=== PATIENT | male | born 1990 | race Caucasian/White ===

== ENCOUNTER 2017-03-02 04:11 | Emergency (ER) | payer MEDICAID ==
[~2017-03-02] VITALS: Ht 162.6 cm; Wt 59.2 kg
[2017-03-02 04:11] VITALS: TEMP 98.3; Ht 162.6 cm; Wt 59.2 kg
[~2017-03-02 04:11] MED LIST: CETI-115 PO; FAMO-137 PO; LORA-204 PO; MIRT15TA6 PO; ZOLP5TAB2 PO
--- OUTSIDE RECORDS SUMMARY | 2017-03-02 04:15 | XMS REPORT ---
Author Author Shalonda Dwyer [facility] [place] eClinicalWorks Address Unknown Phone Unavailable Care Team Providers Care Camera Prototyping Engineer Name Role Phone Shalonda Dwyer CP Unavailable Allergies No Known Allergies Problems Problem Type Condition Code Onset Dates Condition Status Problem Social phobia, unspecified F40.10 Active Problem Major depressive disorder, recurrent, moderate F33.1 Active Medications Medication Code System Code Instructions Start Date End Date Status Dosage Loxapine Succinate [facility] [address]-90 10 MG Orally at bedtime 1 capsule Results No Known Results Summary Purpose eClinicalWorks Submission
--- OUTSIDE RECORDS SUMMARY | 2017-03-02 04:15 | XMS REPORT ---
Author Author Shalonda Dwyer [facility] eClinicalWorks Address Unknown Phone Unavailable Care Team Providers Care Strong Nitric Operator Name Role Phone Shalonda Dwyer CP Unavailable Allergies No Known Allergies Problems Problem Type Condition Code Onset Dates Condition Status Problem Social phobia, unspecified F40.10 Active Problem Major depressive disorder, recurrent, moderate F33.1 Active Medications Medication Code System Code Instructions Start Date End Date Status Dosage Abilicarinay [facility] [address]-33 2 MG Orally Once a day April 26, 2016 1 tablet Results No Known Results Summary Purpose eClinicalWorks Submission
--- OUTSIDE RECORDS SUMMARY | 2017-03-02 04:15 | XMS REPORT | Continuity of Care Document ---
Author Author [facility] Organization [facility] Address Unknown Phone Unavailable Care Team Providers Care Summer Analyst Name Role Phone CHLOE HANDLEY MD Primary Care Physician [phone] Insurance Providers Guarantor Ralph Ying Address [address] [facility] [address] [place] [address] Email DENIED/NO PORTAL Payer [facility] Community Plan Policy Number [id number] Subscriber's Name Ralph Ying Relationship 18 Self Effective Date 16 Expiration Date 16 Advance Directives Directive Response Recorded Date/Time Advanced Directives Type None 03/28/16 3:45pm Chief Complaint and Reason for Visit Chief Complaint Dizzy Reason for Visit Anxiety Gastritis Problems Past Problems Medical Problem Onset Date Anxiety Unknown Gastritis Unknown Medications Current Home Medications Medication Dose Units Route Directions Days Qty Instructions Start Date Cetirizine Hcl (Zyrtec) 10 Mg Tablet 10 Mg Oral Daily as needed for Allery Symptoms 03/28/16 Famotidine (Pepcid) 20 Mg Tablet 1 Tab Oral Twice A Day 30 Tablet take twice a day for a week and then daily. 03/28/16 Lorazepam (Ativan) 1 Mg Tablet 1 Mg Oral Twice A Day for Anxiety 10 Tablet 03/28/16 Mirtazapine 15 Mg Tablet 15 Mg Oral Bedtime 03/28/16 Zolpidem Tartrate (Ambien) 5 Mg Tablet 5 Mg Oral Bedtime as needed for Insomnia 03/28/16 Social History Social History Problem Response Recorded Date/Time Onset Date Status Chewing Tobacco Status No 03/28/2016 5:28pm Not Applicable Not Applicable Hx Substance Use No 03/28/2016 5:28pm Not Applicable Not Applicable Hx Alcohol Use Yes 03/28/2016 5:28pm Not Applicable Not Applicable Tobacco Usage none 03/28/2016 5:18pm Not Applicable Not Applicable Query Response Start Date Stop Date Smoking Status Never smoker Hospital Discharge Instructions No hospital discharge instructions. Plan of Care Discharge Date 03/28/16 8:12pm Disposition 01 DISCHARGED HOME, SELF-CARE Condition at Discharge Stable Instructions/Education Provided Anxiety Disorders DI for Gastritis Prescriptions See Medication Section Referrals LUIZ SU MD Order Date: 1 Week Address: [address] [place] [address] [place] [id number] Note: FOLLOW UP WITH [facility] NEXT WEEK; HE WILL BE BACK IN THE OFFICE AT THAT TIME. Additional Instructions/Education FOLLOW UP WITH [facility] TOMORROW IN THE OUTPATIENT CLINIC. DR SU WAS NOTIFIED OF YOUR HOSPITAL VISIT TODAY AND RECOMMENDS YOU FOLLOW UP WITH [facility] TOMORROW; [facility] WILL BE BACK IN THE OFFICE NEXT WEEK. USE ATIVAN DIRECTED FOR ANXIETY . USE PEPCID DIRECTED TWICE A DAY FOR A WEEK AND THEN DAILY FOR STOMACH IRRITATION AND BLEEDING. Functional Status No functional status results. Allergies, Adverse Reactions, Alerts Allergen Type Severity Reaction Status Last Updated Meperidine Allergy Unknown Active 03/28/16 NAPROMINE Allergy Unknown Active 12/01/08 Immunizations No immunization records. Vital Signs Acute Vital Signs Vital Response Date/Time Temperature (Fahrenheit) 98.3 deg F (96.8 - 99.1) 03/28/2016 8:12pm Temperature (Calculated Celsius) 36.99917 degrees C (36.0 - 37.3) 03/28/2016 8:12pm Pulse Rate (adult) 98 bpm (60 - 100) 03/28/2016 8:12pm Respiratory Rate 18 breaths/min (10 - 20) 03/28/2016 8:12pm O2 Sat by Pulse Oximetry 100 % (90 - 100) 03/28/2016 8:12pm Blood Pressure 130/72 mm Hg 03/28/2016 8:12pm Height (Feet) 5 feet 03/28/2016 3:45pm Height (Inches) 5.00 inches 03/28/2016 3:45pm Weight (Kilograms) 62.000 kg 03/28/2016 3:45pm Body Mass Index (BMI) 22.0 03/28/2016 3:45pm Results Laboratory Results Test Name Result Units Flags Reference Collection Date/Time Result Date/ Time Comments White Blood Count 17.9 T/MM3 H 4.5-11.0 03/28/2016 5:04pm 03/28/2016 5: 38pm Red Blood Count 5.71 M/MM3 4.50-5.90 03/28/2016 5:04pm 03/28/2016 5: 38pm Hemoglobin 15.9 GM/DL 13.5-17.5 03/28/2016 5:04pm 03/28/2016 5:38pm Hematocrit 47.5 % 41-53 03/28/2016 5:04pm 03/28/2016 5:38pm Mean Corpuscular Volume 83.2 UM3 80-100 03/28/2016 5:04pm 03/28/2016 5: 38pm Mean Corpuscular Hemoglobin 27.8 UUG 26-34 03/28/2016 5:04pm 2015 5:38pm Mean Corpuscular Hemoglobin Concent 33.5 GM/DL 31-37 03/28/2016 5:04pm 03/28/2016 5:38pm RDW Standard Deviation 41.6 FL 36.9-50.2 03/28/2016 5:04pm 03/28/2016 5 :38pm Platelet Count 316 T/MM3 130-400 03/28/2016 5:04pm 03/28/2016 5:38pm Mean Platelet Volume 10.1 UM3 9.4-12.4 03/28/2016 5:04pm 03/28/2016 5: 38pm Neutrophils % (Manual) 84.0 % H 33-66 03/28/2016 5:04pm 03/28/2016 5: 49pm Band Neutrophils % 2.0 % 0-6 03/28/2016 5:04pm 03/28/2016 5:49pm Lymphocytes % (Manual) 6.0 % L 23-45 03/28/2016 5:04pm 03/28/2016 5: 49pm Monocytes % (Manual) 8.0 % 0-9.0 03/28/2016 5:04pm 03/28/2016 5:49pm Band Neutrophils # 0.4 T/MM3 03/28/2016 5:04pm 03/28/2016 5:49pm Absolute Neutrophils (Manual) 15.0 T/MM3 H 1.8-7.7 03/28/2016 5:04pm 5:49pm Lymphocytes # (Manual) 1.1 T/MM3 1-4.8 03/28/2016 5:04pm 03/28/2016 5: 49pm Monocytes # (Manual) 1.4 T/MM3 H 0-0.8 03/28/2016 5:04pm 03/28/2016 5: 49pm Red Cell Morphology Comment NORMAL 03/28/2016 5:04pm 03/28/2016 5: 49pm Icterus Index < 2 0-7 03/28/2016 5:04pm 03/28/2016 5:34pm Chemistry Specimen Hemolysis < 15 0-25 03/28/2016 5:04pm 03/28/2016 5 :34pm 0-25: Specimen Exhibited No Hemolysis. Turbidity < 20 0-20 03/28/2016 5:04pm 03/28/2016 5:34pm Sodium Level 142 MEQ/L 134-144 03/28/2016 5:04pm 03/28/2016 5:40pm Potassium Level 3.3 MEQ/L L 3.6-5 03/28/2016 5:04pm 03/28/2016 5:40pm Chloride Level 105 MEQ/L 98-107 03/28/2016 5:04pm 03/28/2016 5:40pm Carbon Dioxide Level 24 MEQ/L 22-30 03/28/2016 5:04pm 03/28/2016 5: 40pm Anion Gap 13 MEQ/L 5-03/28/2016 5:04pm 03/28/2016 5:40pm Blood Urea Nitrogen 12.0 MG/DL 9-03/28/2016 5:04pm 03/28/2016 5: 40pm Creatinine 0.9 MG/DL 0.8-1.5 03/28/2016 5:04pm 03/28/2016 5:40pm BUN/Creatinine Ratio 13 RATIO 6-03/28/2016 5:04pm 03/28/2016 5:40pm Glomerular Filtration Rate Calc 105 03/28/2016 5:04pm 03/28/2016 5: 40pm Glucose Level 98 MG/DL 75-110 03/28/2016 5:04pm 03/28/2016 5:40pm Calculated Osmolality 273 MOSM/KG 261-280 03/28/2016 5:04pm 03/28/2016 5:40pm Calcium Level 10.0 MG/DL 8.4-10.2 03/28/2016 5:04pm 03/28/2016 5:40pm Acetaminophen Level < 10 UG/ML L 10-30 03/28/2016 5:04pm 03/28/2016 5: 40pm TOXIC <4 HR POST INGESTION: >150 MG/L; TOXIC <12 HR POST INGESTION: >50 MG/L Salicylates Level < 1.0 MG/DL L 2-20 03/28/2016 5:04pm 03/28/2016 5: 40pm Alcohol, Quantitative <10 MG/DL <10 03/28/2016 5:04pm 03/28/2016 5: 40pm Urine Collection Type VOIDED-NOT CC-MIDSTR 03/28/2016 6:20pm 2015 6:27pm Urine Color YELLOW YELLOW 03/28/2016 6:03/28/2016 6:27pm Urine Turbidity CLEAR CLEAR 03/28/2016 6:20pm 03/28/2016 6:27pm Urine Specific [place] 1.010 L 1.015-1.025 03/28/2016 6:20pm 2015 6:27pm Urine pH 7.0 5.0-8.0 03/28/2016 6:20pm 03/28/2016 6:27pm Urine Leukocyte Esterase NEGATIVE NEGATIVE 03/28/2016 6:202015 6:27pm Urine Nitrite NEGATIVE NEGATIVE 03/28/2016 6:03/28/2016 6:27pm Urine Protein NEGATIVE NEGATIVE 03/28/2016 6:20pm 03/28/2016 6:27pm Urine Glucose (UA) NEGATIVE NEGATIVE 03/28/2016 6:20pm 03/28/2016 6: 27pm Urine Ketones NEGATIVE NEGATIVE 03/28/2016 6:20pm 03/28/2016 6:27pm Urine Urobilinogen 0.2 EU/DL NORMAL 03/28/2016 6:20pm 03/28/2016 6: 27pm Urine Bilirubin NEGATIVE NEGATIVE 03/28/2016 6:20pm 03/28/2016 6: 27pm Urine Blood NEGATIVE NEGATIVE 03/28/2016 6:20pm 03/28/2016 6:27pm Urinalysis Comment MICROSCOPIC NOT IND. 03/28/2016 6:20pm 2015 6:27pm Procedures No known history of procedures. Encounters Encounter Location Arrival/Admit Date Discharge/Depart Date Attending Provider Departed Emergency Room [facility] 03/28/16 3:42pm 03/28/16 8: 12pm RIZWAN CHEN MD Recent Diagnosis
--- OUTSIDE RECORDS SUMMARY | 2017-03-02 04:15 | XMS REPORT ---
Author Author Shalonda Dwyer Organization eClinicalWorks Address Unknown Phone Unavailable Care Team Providers Care Custom Car Builder Name Role Phone Shalonda Dwyer CP Unavailable Allergies No Known Allergies Problems Problem Type Condition Code Onset Dates Condition Status Problem Social phobia, unspecified F40.10 Active Problem Major depressive disorder, recurrent, moderate F33.1 Active Medications No Known Medications Results No Known Results Summary Purpose eClinicalWorks Submission
--- OUTSIDE RECORDS SUMMARY | 2017-03-02 04:15 | XMS REPORT ---
Author Author Gagan Jeff eClinicalWorks Address Unknown Phone Unavailable Care Team Providers Care Machine Gun Mechanic Name Role Phone Gagan Jeff CP Unavailable Allergies, Adverse Reactions, Alerts Substance Reaction Event Type Seroquel builds up quickly at low doses Drug Allergy Imipramine HCl blisters in mouth Drug Allergy Depakote Info Not Available Drug Allergy Demerol hives Drug Allergy Abilify stomach upset Non Drug Allergy some animals Info Not Available Non Drug Allergy mold and grass Info Not Available Non Drug Allergy Seasonal allergies Info Not Available Non Drug Allergy Problems Problem Type Condition Code Onset Dates Condition Status Problem Social phobia, unspecified F40.10 Active Assessment Major depressive disorder, recurrent, moderate F33.1 Active Problem Major depressive disorder, recurrent, moderate F33.1 Active Assessment Social phobia, unspecified F40.10 Active Medications Medication Code System Code Instructions Start Date End Date Status Dosage HydrOXYzine HCl [facility] [address]-79 25 MG Orally up to Three times a day March 29, 2016 1 tablet Carafate [facility] [address]-46 1 GM Orally 3 Times a day, as needed 1 tablet Lorazepam [facility] [address]-68 0.5 MG Orally Once a day 1 tablet at bedtime as needed Ambien [facility] [address]-78 5 MG Orally Once a day 1 tablet at bedtime Cetirizine HCl [facility] [address]-01 10 MG Orally Once a day for allergies 1 tablet Famotidine [facility] [address]-10 20 MG Orally Twice a day 1 tablet Albuterol Sulfate HFA [facility] [address]-37 108 (90 Base) MCG/ACT Inhalation every 4 hrs 2 puffs as needed Mirtazapine [facility] [address]-57 15 MG Orally Once a day for mood issues 1 tablet before bedtime in the evening Procedures Procedure Coding System Code Date OFFICE VISIT, EST-MOD. COMPLEXITY (25 MIN) CPT-4 08072 Jun 28, 2016 Vital Signs Date/Time: Sept 20, 2016 Temperature 99.2 F Height 65.75 in Weight 123.8 lbs Blood Pressure Diastolic 80 mm Hg Blood Pressure Systolic 128 mm Hg Cardiac Monitoring Heart Rate 86 /min BMI 20.13 Index Respiratory Rate 20 /min Results No Known Results Summary Purpose eClinicalWorks Submission
--- OUTSIDE RECORDS SUMMARY | 2017-03-02 04:15 | XMS REPORT ---
Author Author Shalonda Dwyer Organization eClinicalWorks Address Unknown Phone Unavailable Care Team Providers Care Glazier Supervisor Name Role Phone Shalonda Dwyer CP Unavailable Allergies No Known Allergies Problems Problem Type Condition Code Onset Dates Condition Status Problem Social phobia, unspecified F40.10 Active Problem Major depressive disorder, recurrent, moderate F33.1 Active Medications No Known Medications Results No Known Results Summary Purpose eClinicalWorks Submission
--- OUTSIDE RECORDS SUMMARY | 2017-03-02 04:15 | XMS REPORT ---
Author Author Shalonda Dwyer Organization eClinicalWorks Address Unknown Phone Unavailable Care Team Providers Care Cargo Operations Agent Name Role Phone Shalonda Dwyer CP Unavailable Allergies, Adverse Reactions, Alerts Substance Reaction Event Type Seroquel builds up quickly at low doses Drug Allergy Imipramine HCl blisters in mouth Drug Allergy Depakote Info Not Available Drug Allergy Demerol hives Drug Allergy some animals Info Not Available Non Drug Allergy mold and grass Info Not Available Non Drug Allergy Seasonal allergies Info Not Available Non Drug Allergy Problems Problem Type Condition ICD-9 Code Onset Dates Condition Status Problem Social phobia 300.23 Active Assessment Major depressive disorder, recurrent episode, moderate 296.32 Active Problem Major depressive disorder, recurrent episode, moderate 296.32 Active Medications Medication Code System Code Instructions Start Date End Date Status Dosage Ambien [facility] [address]-99 5 MG Orally Once a day 1 tablet at bedtime Mirtazapine [facility] [address]-83 15 MG Orally Once a day for mood issues 1 tablet before bedtime in the evening Albuterol Sulfate HFA [facility] [address]-94 108 (90 Base) MCG/ACT Inhalation every 4 hrs 2 puffs as needed Cetirizine HCl [facility] [address]-39 10 MG Orally Once a day for allergies 1 tablet Loxapine Succinate [facility] [address]-31 10 MG Orally at bedtime 1 capsule Procedures Procedure Coding System Code Date OFFICE VISIT, EST-MOD. COMPLEXITY (25 MIN) CPT-4 02054 May 19, 2015 Vital Signs Date/Time: May 19, 2015 Height 64 in Weight 142.8 lbs Temperature 98.9 F Blood Pressure Diastolic 90 mm Hg Blood Pressure Systolic 134 mm Hg Cardiac Monitoring Heart Rate 92 /min BMI 24.51 Index Respiratory Rate 18 /min Results No Known Results Summary Purpose eClinicalWorks Submission
--- OUTSIDE RECORDS SUMMARY | 2017-03-02 04:15 | XMS REPORT ---
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
--- OUTSIDE RECORDS SUMMARY | 2017-03-02 04:16 | XMS REPORT ---
Author Author Gagan Jeff eClinicalWorks Address Unknown Phone Unavailable Care Team Providers Care Sewage Plant Attendant Name Role Phone Gagan Jeff CP Unavailable Allergies No Known Allergies Problems Problem Type Condition Code Onset Dates Condition Status Problem Social phobia, unspecified F40.10 Active Problem Major depressive disorder, recurrent, moderate F33.1 Active Medications Medication Code System Code Instructions Start Date End Date Status Dosage Lorazepam [facility] [address]-05 0.5 MG Orally Once a day 1 tablet at bedtime as needed Results No Known Results Summary Purpose eClinicalWorks Submission
--- OUTSIDE RECORDS SUMMARY | 2017-03-02 04:16 | XMS REPORT ---
Author Author Shalonda Dwyer [facility] eClinicalWorks Address Unknown Phone Unavailable Care Team Providers Care Carding Supervisor Name Role Phone Shalonda Dwyer CP [...] Start Date End Date Status Dosage Ambien [facility] [address]-02 5 MG Orally Once a day 1 tablet at bedtime Albuterol Sulfate HFA [facility] [address]-19 108 (90 Base) MCG/ACT Inhalation every 4 hrs 2 puffs as needed Lorazepam [facility] [address]-75 0.5 MG Orally Once a day 1 tablet at bedtime as needed Abilify [facility] [address]-08 2 MG Orally Once a day April 26, 2016 1 tablet HydrOXYzine HCl [facility] [address]-66 25 MG Orally up to Three times a day March 29, 2016 1 tablet Cetirizine HCl [facility] [address]-93 10 MG Orally Once a day for allergies 1 tablet Carafate [facility] [address]-89 1 GM Orally 3 Times a day 1 tablet Famotidine [facility] [address]-86 20 MG Orally Twice a day 1 tablet Mirtazapine [facility] [address]-34 15 MG Orally Once a day for mood issues 1 tablet before bedtime in the evening Procedures Procedure Coding System Code Date OFFICE VISIT, EST-MOD. COMPLEXITY (25 MIN) CPT-4 84771 April 26, 2016 Vital Signs Date/Time: April 26, 2016 Temperature 98.4 F Height 65.75 in Weight 130.8 lbs Blood Pressure Diastolic 90 mm Hg Blood Pressure Systolic 132 mm Hg Cardiac Monitoring Heart Rate 82 /min BMI 21.27 Index Respiratory Rate 20 /min Results No Known Results Summary Purpose eClinicalWorks Submission
--- OUTSIDE RECORDS SUMMARY | 2017-03-02 04:16 | XMS REPORT ---
Author Author Tomer Gagan [facility] Address [address] [place] [address] Care Team Providers Care Assistant Sales Center Manager Name Role Phone Gagan Jeff Unavailable [phone] PROBLEMS Type Condition ICD9-CM Code [id number] Code Onset Dates Condition Status SNOMED Code Problem Major depressive disorder, recurrent, moderate F33.1 Active 63240018 Problem Social phobia, unspecified F40.10 Active 92688001 Assessment Major depressive disorder, recurrent, moderate F33.1 Sep, Active 42044831 Assessment Other nursing home (current) drug therapy Z79.899 Sep, Active [id number] ALLERGIES Substance Reaction Event Type Date Status Seroquel builds up quickly at low doses Drug Allergy Sep, Active Imipramine HCl blisters in mouth Drug Allergy Sep, Active Depakote Unknown Drug Allergy Sep, Active Demerol hives Drug Allergy Sep, Active Abilify stomach upset Non Drug Allergy Sep, Active some animals Unknown Non Drug Allergy Sep, Active mold and grass Unknown Non Drug Allergy Sep, Active Seasonal allergies Unknown Non Drug Allergy Sep, Active SOCIAL HISTORY No smoking Hx information available PLAN OF CARE VITAL SIGNS Weight 122.12 lbs 2016-09-21 Height 65.75 in 2016-09-21 Temperature 97.6 degrees Fahrenheit 2016-09-21 BMI 19.86 kg/m2 2016-09-21 Heart Rate 86 /min 2016-09-21 Respiratory Rate 20 /min 2016-09-21 Blood pressure systolic 124 mm Hg 2016-09-21 Blood pressure diastolic 76 mm Hg 2016-09-21 MEDICATIONS Medication Instructions Dosage Frequency Start Date End Date Duration Status Mirtazapine 15 MG Orally Once a day for mood issues 1 tablet before bedtime in the evening 30 days Active Ambien 5 MG Orally Once a day 1 tablet at bedtime 24h 30 days Active Cetirizine HCl 10 MG Orally Once a day for allergies 1 tablet Active HydrOXYzine HCl 25 MG Orally up to Three times a day 1 tablet Mar, 90 days Active Carafate 1 GM Orally 3 Times a day, as needed 1 tablet Active Famotidine 20 MG Orally Twice a day 1 tablet 12h Active Albuterol Sulfate HFA 108 (90 Base) MCG/ACT Inhalation every 4 hrs 2 puffs as needed 4h Active Lorazepam 0.5 MG Orally Once a day 1 tablet at bedtime as needed 24h 30 days Active RESULTS No Results PROCEDURES Procedure Date Ordered Related Diagnosis Body Site OFFICE VISIT, EST-MOD. COMPLEXITY (25 MIN) Sep 21, 2016 IMMUNIZATIONS No Known Immunizations
--- OUTSIDE RECORDS SUMMARY | 2017-03-02 04:16 | XMS REPORT ---
Author Author Gagan Jeff eClinicalWorks Address Unknown Phone Unavailable Care Team Providers Care Specialty Finishing Utility Person Name Role Phone Gagan Jeff Unavailable Allergies No Known Allergies Problems Problem Type Condition Code Onset Dates Condition Status Problem Social phobia, unspecified F40.10 Active Problem Major depressive disorder, recurrent, moderate F33.1 Active Medications Medication Code System Code Instructions Start Date End Date Status [facility] [address]-25 5 MG Orally Once a day 1 tablet at bedtime Results No Known Results Summary Purpose eClinicalWorks Submission
--- OUTSIDE RECORDS SUMMARY | 2017-03-02 04:16 | XMS REPORT ---
Author Author Shalonda Dwyer [facility] eClinicalWorks Address Unknown Phone Unavailable Care Team Providers Care Cancer Spec Name Role Phone Shalonda Dwyer CP Unavailable Allergies No Known Allergies Problems Problem Type Condition Code Onset Dates Condition Status Problem Social phobia, unspecified F40.10 Active Problem Major depressive disorder, recurrent, moderate F33.1 Active Medications Medication Code System Code Instructions Start Date End Date Status Dosage Ambien [facility] [address]-75 5 MG Orally Once a day 1 tablet at bedtime Results No Known Results Summary Purpose eClinicalWorks Submission
--- OUTSIDE RECORDS SUMMARY | 2017-03-02 04:16 | XMS REPORT ---
Author Author Shalonda Dwyer Organization eClinicalWorks Address Unknown Phone Unavailable Care Team Providers Care Print Shop Helper Name Role Phone Shalonda Dwyer CP Unavailable Allergies No Known Allergies Problems Problem Type Condition Code Onset Dates Condition Status Problem Social phobia, unspecified F40.10 Active Problem Major depressive disorder, recurrent, moderate F33.1 Active Medications Medication Code System Code Instructions Start Date End Date Status Dosage Lorazepam [facility] [address]-10 0.5 MG Orally Once a day 1 tablet at bedtime as needed Results No Known Results Summary Purpose eClinicalWorks Submission
--- OUTSIDE RECORDS SUMMARY | 2017-03-02 04:16 | XMS REPORT ---
Author Author Jeff Gagan Organization [facility] Address [address] [place] [address] Care Team Providers Care Coal Chemist Name Role Phone Gagan Jeff Unavailable [phone] PROBLEMS Type Condition ICD9-CM Code [id number] Code Onset Dates Condition Status SNOMED Code Problem Major depressive disorder, recurrent, moderate F33.1 Active 62644194 Problem Social phobia, unspecified F40.10 Active [id number] Assessment Other intermediate manager (current) drug therapy Z79.899 Sep, Active [id number] ALLERGIES Unknown Allergies SOCIAL HISTORY No smoking Hx information available PLAN OF CARE Activity Details Pending Test CBC With Platelet and Differential Pending Test T4 Free Pending Test TSH Pending Test In House CMP Pending Test In House Lipid Panel ,Reason: VITAL SIGNS MEDICATIONS Medication Instructions Dosage Frequency Start Date End Date Duration Status Cetirizine HCl 10 MG Orally Once a day for allergies 1 tablet Active Albuterol Sulfate HFA 108 (90 Base) MCG/ACT Inhalation every 4 hrs 2 puffs as needed 4h Active Famotidine 20 MG Orally Twice a day 1 tablet 12h Active Mirtazapine 15 MG Orally Once a day for mood issues 1 tablet before bedtime in the evening 30 days Active HydrOXYzine HCl 25 MG Orally up to Three times a day 1 tablet Mar, 90 days Active Carafate 1 GM Orally 3 Times a day, as needed 1 tablet Active Lorazepam 0.5 MG Orally Once a day 1 tablet at bedtime as needed 24h 30 days Active Ambien 5 MG Orally Once a day 1 tablet at bedtime 24h 30 days Active RESULTS Name Result Date Reference Range CBC With Platelet and Differential 2016-09-22 WBC 9.6 4.8-10.8 RBC 5.44 4.60-6.20 HGB 15.2 14.0-18.0 HCT 45.8 42.0-52.0 MCV 84.2 82.0-99.0 MCH 27.9 27.0-32.0 MCHC 33.2 32.0-36.0 RDW 13.9 11.5-14.5 MPV 9.9 8.8-14.8 Platelet Count 290 150-400 Immature Granulocytes 0.5 0.0-1.0 Absolute Neutrophils 4.01 1.90-7.00 Absolute Lymphocytes 3.77 0.80-3.30 Absolute Monocytes 1.14 0.30-1.00 Absolute Eosinophils 0.52 0.00-0.50 Absolute Basophils 0.11 0.00-0.20 Neutrophils 42 51-75 Lymphocytes 39 20-46 Monocytes 12 4-11 Eosinophils 5 0-4 Basophils 1 0-2 T4 Free 2016-09-22 Free T4 0.9 0.7-1.5 TSH 2016-09-22 TSH 6.29 0.35-4.94 In House CMP 2016-09-22 Sodium 142 128 - 145 mmol/L Potassium 4.1 3.6 - 5.1 mmol/L CO2 28 18 - 33 mmol/L Chloride 104 98 - 108 mmol/L Glucose 92 73 - 118 mg/DL Calcium 9.2 8.0 - 10.3 mg/DL BUN 11 7 - 22 mg/DL Creatinine 0.9 0.6 - 1.2 mg/DL Alkaline Phosphatase 50* 53 - 128 u/L ALT 26 10 - 47 u/L AST 26 11 - 38 u/L Total Bilirubin 0.8 0.2 - 1.6 mg/DL Albumin 4.2 3.3 - 5.5 g/DL EGFR >60 Total Protein 7.5 6.4 - 8.1 G/DL In House Lipid Panel 2016-09-22 Cholesterol 129 HDL 61 Triglycerides 46 nHDLc 68 Chol/HDL Ratio 2.1 LDL 59 VLDL 9 PROCEDURES Procedure Date Ordered Related Diagnosis Body Site COMPLETE CBC W/AUTO DIFF WBC Sep 22, 2016 T4 FREE Sep 22, 2016 IH CMP Sep 22, 2016 TSH Sep 22, 2016 [facility] LIPID PANEL Sep 22, 2016 IMMUNIZATIONS No Known Immunizations
--- OUTSIDE RECORDS SUMMARY | 2017-03-02 04:16 | XMS REPORT ---
Author Author Gagan Jeff [employer] Address Unknown Phone Unavailable Care Team Providers Care System Administration Advisor Name Role Phone Gagan Jeff CP Unavailable Allergies No Known Allergies Problems Problem Type Condition Code Onset Dates Condition Status Problem Social phobia, unspecified F40.10 Active Problem Major depressive disorder, recurrent, moderate F33.1 Active Medications No Known Medications Results No Known Results Summary Purpose [employer] Submission
--- OUTSIDE RECORDS SUMMARY | 2017-03-02 04:16 | XMS REPORT ---
Author Author Shalonda Dwyer Organization [employer] Address Unknown Phone Unavailable Care Team Providers Care Clerical Proofreader Name Role Phone Shalonda Dwyer CP Unavailable Allergies, Adverse Reactions, Alerts Substance Reaction Event Type Imipramine HCl Info Not Available Drug Allergy Depakote Info Not Available Drug Allergy Demerol Info Not Available Drug Allergy some animals Info Not Available Non Drug Allergy mold and grass Info Not Available Non Drug Allergy Seasonal allergies Info Not Available Non Drug Allergy Problems Problem Type Condition Code Onset Dates Condition Status Problem Social phobia 300.23 Active Assessment Major depressive disorder, recurrent episode, moderate 296.32 Active Problem Major depressive disorder, recurrent episode, moderate 296.32 Active Assessment Social phobia 300.23 Active Medications Medication Code System Code Instructions Start Date End Date Status Dosage Mirtazapine [facility] [address]-08 15 MG Orally Once a day for mood issues 1 tablet before bedtime in the evening Ambien [facility] [address]-88 5 MG Orally Once a day 1 tablet at bedtime Loxapine Succinate [facility] [address]-44 10 MG Orally at bedtime 1 capsule Albuterol Sulfate HFA [facility] [address]-50 108 (90 Base) MCG/ACT Inhalation every 4 hrs 2 puffs as needed Cetirizine HCl [facility] [address]-28 10 MG Orally Once a day for allergies 1 tablet Procedures Procedure Coding System Code Date OFFICE VISIT, EST-MOD. COMPLEXITY (25 MIN) CPT-4 53371 February 10, 2015 Vital Signs Date/Time: February 10, 2015 Height 64 in Weight 147.8 lbs Temperature 98.8 F Blood Pressure Diastolic 96 mm Hg Blood Pressure Systolic 130 mm Hg Cardiac Monitoring Heart Rate 98 /min BMI 25.37 Index Respiratory Rate 16 /min Results No Known Results Summary Purpose [employer] Submission
--- OUTSIDE RECORDS SUMMARY | 2017-03-02 04:16 | XMS REPORT ---
Author Author Gagan Jeff [employer] Address Unknown Phone Unavailable Care Team Providers Care English Instructor Name Role Phone Gagan Jeff CP Unavailable [...] Start Date End Date Status Dosage Mirtazapine [facility] [address]-22 15 MG Orally Once a day for mood issues 1 tablet before bedtime in the evening Cetirizine HCl [facility] [address]-15 10 MG Orally Once a day for allergies [address] [facility] [address]-19 5 MG Orally Once a day 1 tablet at bedtime Carafate [facility] [address]-49 1 GM Orally 3 Times a day, as needed 1 tablet Albuterol Sulfate HFA [facility] [address]-46 108 (90 Base) MCG/ACT Inhalation every 4 hrs 2 puffs as needed Lorazepam [facility] [address]-45 0.5 MG Orally Once a day 1 tablet at bedtime as needed HydrOXYzine HCl [facility] [address]-67 25 MG Orally up to Three times a day March 29, [address] [facility] [address]-43 20 MG Orally Twice a day 1 tablet Procedures Procedure Coding System Code Date OFFICE VISIT, EST-MOD. COMPLEXITY (25 MIN) CPT-4 01433 Aug 10, 2016 Vital Signs Date/Time: Aug 10, 2016 Temperature 98.5 F Height 65.75 in Weight 121.4 lbs Blood Pressure Diastolic 80 mm Hg Blood Pressure Systolic 122 mm Hg Cardiac Monitoring Heart Rate 82 /min BMI 19.74 Index Respiratory Rate 20 /min Results No Known Results Summary Purpose [employer] Submission
--- OUTSIDE RECORDS SUMMARY | 2017-03-02 04:16 | XMS REPORT ---
Author Author Shalonda Dwyer Organization [employer] Address Unknown Phone Unavailable Care Team Providers Care Wharf Laborer Name Role Phone Shalonda Dwyer CP Unavailable [...] Instructions Start Date End Date Status Dosage Albuterol Sulfate HFA [facility] [address]-64 108 (90 Base) MCG/ACT Inhalation every 4 hrs 2 puffs as needed Cetirizine HCl [facility] [address]-39 10 MG Orally Once a day for allergies 1 tablet Loxapine Succinate [facility] [address]-51 10 MG Orally at bedtime [address] [facility] [address]-31 15 MG Orally Once a day for mood issues 1 tablet before bedtime in the evening Ambien [facility] [address]-00 5 MG Orally Once a day 1 tablet at bedtime Procedures Procedure Coding System Code Date OFFICE VISIT, EST-MOD. COMPLEXITY (25 MIN) CPT-4 34797 Sep 01, 2015 Vital Signs Date/Time: Sep 01, 2015 Height 64 in Weight 143.5 lbs Temperature 98.5 F Blood Pressure Diastolic 86 mm Hg Blood Pressure Systolic 140 mm Hg Cardiac Monitoring Heart Rate 80 /min BMI 24.63 Index Respiratory Rate 20 /min Results No Known Results Summary Purpose [employer] Submission
--- OUTSIDE RECORDS SUMMARY | 2017-03-02 04:16 | XMS REPORT ---
Author Author Gagan Jeff [facility] [employer] Address Unknown Phone Unavailable Care Team Providers Care Heel Gouger Name Role Phone Gagan Jeff Unavailable Allergies No Known Allergies Problems Problem Type Condition Code Onset Dates Condition Status Problem Social phobia, unspecified F40.10 Active Problem Major depressive disorder, recurrent, moderate F33.1 Active Medications Medication Code System Code Instructions Start Date End Date Status Dosage Mirtazapine [facility] [address]-73 15 MG Orally Once a day for mood issues 1 tablet before bedtime in the evening Results No Known Results Summary Purpose [employer] Submission
--- OUTSIDE RECORDS SUMMARY | 2017-03-02 04:16 | XMS REPORT ---
Author Author Yadi Whitman Organization [employer] Address Unknown Phone Unavailable Care Team Providers Care Ssis Etl Developer Name Role Phone Yadi Whitman CP Unavailable Allergies No Known Allergies Problems Problem Type Condition Code Onset Dates Condition Status Problem Social phobia, unspecified F40.10 Active Problem Major depressive disorder, recurrent, moderate F33.1 Active Medications Medication Code System Code Instructions Start Date End Date Status Dosage Ambien [facility] [address]-19 5 MG Orally Once a day 1 tablet at bedtime Results No Known Results Summary Purpose [employer] Submission
--- OUTSIDE RECORDS SUMMARY | 2017-03-02 04:16 | XMS REPORT ---
Author Author Shalonda Dwyer Organization [employer] Address Unknown Phone Unavailable Care Team Providers Care Laundry Agent Name Role Phone Shalonda Dwyer CP Unavailable Allergies No Known Allergies Problems Problem Type Condition Code Onset Dates Condition Status Problem Social phobia, unspecified F40.10 Active Problem Major depressive disorder, recurrent, moderate F33.1 Active Medications No Known Medications Results No Known Results Summary Purpose [employer] Submission
--- OUTSIDE RECORDS SUMMARY | 2017-03-02 04:16 | XMS REPORT ---
Author Author Shalonda Dwyer [facility] [employer] Address Unknown Phone Unavailable Care Team Providers Care Family Practice Md Name Role Phone Shalonda Dwyer CP Unavailable Allergies No Known Allergies Problems Problem Type Condition Code Onset Dates Condition Status Problem Social phobia, unspecified F40.10 Active Problem Major depressive disorder, recurrent, moderate F33.1 Active Medications Medication Code System Code Instructions Start Date End Date Status Dosage Mirtazapine [facility] [address]-21 15 MG Orally Once a day for mood issues 1 tablet before bedtime in the evening Results No Known Results Summary Purpose [employer] Submission
[2017-03-02] MEDS: NORMAL SALINE 1,000 ML IV ONE (04:49)
[2017-03-02] MEDS: ONDANSETRON 4mg/2ml INJECTION IV ONE (04:50)
--- NOTE | 2017-03-02 04:50 | ERPDOC ---
Departure Disposition Decision Date: March 02, 2017 Disposition Decision Time: 06:03 Disposition: 01 DISCHARGED HOME, SELF-CARE Impression Impression Impression: Primary Impression: Vomiting Additional Impressions: Dehydration Anxiety Severity: Moderate Condition: Improved Seen By: Physician only Referrals: CHLOE HANDLEY MD (PCP) LUIZ SU MD (Family) Patient Instructions: Acute Nausea and Vomiting (ED) Problems/Meds/Labs Reviewed?: Yes Medications reviewed and manag: Yes Additional Instructions: Clear liquids today as tolerated. Zofran 4 mg tablet every 6 hours as needed for nausea. Follow-up with your physician to review your medications. Follow up care ordered?: Yes Mental Status: Alert, Oriented Scripts Ondansetron HCl (Zofran) 4 Mg Tablet 4 MG PO Q6H for NAUSEA, #30 TAB Prov: CATHI BILL MD 03/02/17 HPI - Abdominal Pain General Chief Complaint: Nausea,Vomiting,Diarrhea Stated Complaint: VOMITING Time Seen by Provider: 04:18 HPI - Abdominal Pain Initial Comments 26-year-old male presents with nausea vomiting for 4 hours. He has a history of severe anxiety and is being started on a new medication for his anxiety. He is currently being weaned off of his hydroxyzine and Ativan. He just started taking the new medication, mirtazapine. He has been treated for possible ulcer previously, saw some blood in his vomit and is concerned that he may be throwing up blood. He did have ice cream right before he went to bed, which can sometimes make his nausea worse. He normally takes Ambien and hydroxyzine at bedtime, but has not taken them yet tonight. No fever or chills, no alcohol. Allergies: Coded Allergies: animal dander (Verified Allergy, Unknown, 03/02/17) aripiprazole (Verified Allergy, Unknown, 03/02/17) divalproex sodium (Verified Allergy, Unknown, 03/02/17) grass pollen (Verified Allergy, Unknown, 03/02/17) imipramine (Verified Allergy, Unknown, 03/02/17) meperidine (Unverified Allergy, Unknown, 03/02/17) mold (Verified Allergy, Unknown, 03/02/17) quetiapine (Verified Allergy, Unknown, 03/02/17) Past History Past Medical History Psychological: ADHD, anxiety, depression, other Family History Family History: Negative Social History Smoking Status: Current some day smoker Record Review Pertinent history updated: Yes Review of Systems General: see HPI Psychiatric Psychiatric: see HPI All other Systems All Other Systems: Reviewed and Negative Physical Exam General General Nourishment: adult, thin, acute distress Distress Description Patient has emesis bag which is one third to one half full of fresh vomit Vitals and Pain First Documented Vital Signs Date Time Temp Pulse Resp B/P Pulse Ox O2 Delivery O2 Flow Rate FiO2 03/02/17 04:11 98.3 102 16 156/91 100 Room Air Weight: Kilograms: Height (feet): 5 Height (inches): 5.00 Triage Pain Scale: Normal Exams: Head: Normocephalic w/o trauma Chest/Resp: Clear all henderson, with good airflow, and symmetry bilaterally CV: Regular rate and rhythm, without murmur or gallop, Pulses 2+ all extremities, capillary refill, <2 seconds all ext., no pedal edema noted Abdomen: Bowel sounds positive, soft, non-tender, non-distended, no hepatosplenomegaly, masses or bruits noted Neurologic: Patient is alert, and oriented, cranial nerves, motor/sensory/ cerebellar, exams w/o gross deficits, to observation Psychiatric (brief) Comments Patient is very nervous Differential Diagnoses Considering: Other (small bowel obstruction, gastric ulcer, cyclic vomiting, anxiety, rhinitis) Progress Results/Orders Orders Procedure Category Date Status Time Cbc W/Auto LAB 03/02/17 Complete Diff-Reflex Manual 04:18 Cmp - Comprehensive LAB 03/02/17 Complete Metabolic 04:18 Lipase LAB 03/02/17 Complete 04:18 Drug Screen LAB 03/02/17 [place]ged [place] [facility] [place]:18 Ua, Dip Wreflex LAB 03/02/17 Logged [employer] Installer 04:18 Kub W/Upright RAD 03/02/17 Taken 04:18 Iv Lock (Ed Only) EDM 03/02/17 Transmitted 04:18 Normal Saline (Normal PHA 03/02/17 Complete Saline Iv) 04:18 Ondansetron Inj PHA 03/02/17 Complete (Zofran) 04:30 Lab Results Laboratory Tests Test 03/02/17 04:50 White Blood Count 12.7T/MM3 Red Blood Count 5.55M/MM3 Hemoglobin 15.7GM/DL Hematocrit 47.0% Mean Corpuscular Volume 84.7UM3 Mean Corpuscular Hemoglobin 28.3UUG Mean Corpuscular Hemoglobin Concent 33.4GM/DL RDW Standard Deviation 41.9FL Platelet Count 312T/MM3 Mean Platelet Volume 10.0UM3 Immature Granulocyte % (Auto) 0.2% Neutrophils (%) (Auto) 80.0% Lymphocytes (%) (Auto) 12.5% Monocytes (%) (Auto) 6.6% Eosinophils (%) (Auto) 0.5% Basophils (%) (Auto) 0.2% Absolute Immature Granulocyte (auto 0.03T/MM3 Absolute Neutrophils (auto) 10.1T/MM3 Absolute Lymphocytes (auto) 1.6T/MM3 Absolute Monocytes (auto) 0.8T/MM3 Absolute Eosinophils (auto) 0.1T/MM3 Absolute Basophils (auto) 0.0T/MM3 Turbidity < 20 Sodium Level 149MEQ/L Potassium Level 3.5MEQ/L Chloride Level 106MEQ/L Carbon Dioxide Level 25MEQ/L Anion Gap 18MEQ/L Blood Urea Nitrogen 15.0MG/DL Creatinine 0.9MG/DL Glomerular Filtration Rate Calc 104 BUN/Creatinine Ratio 17RATIO Glucose Level 98MG/DL Calculated Osmolality 287MOSM/KG Calcium Level 9.9MG/DL Total Bilirubin 0.80MG/DL Icterus Index < 2 Aspartate Amino Transf (AST/SGOT) 22U/L Alanine Aminotransferase (ALT/SGPT) 34U/L Alkaline Phosphatase 74U/L Total Protein 8.1G/DL Albumin 5.0G/DL Globulin 3.1G/DL Albumin/Globulin Ratio 1.6RATIO Lipase 96U/L Chemistry Specimen Hemolysis 32 Medications Current ED Medications Sodium Chloride (Normal Saline IV) 1,000 ml @ 1,000 mls/hr Q1H ONCE IV Last administered on 03/02/17 04:49; Start 03/02/17 at 04:18; Stop 03/02/17 at 05:18 ; Status DC Ondansetron HCl (Zofran) 4 mg O ONCE IV Last administered on 03/02/17 04:50; Start 03/02/17 at 04:30; Stop 03/02/17 at 04:32; Status DC Progress Progress Patient is a slightly elevated white count which is appropriate for the vomiting. Otherwise labs are normal. Abdominal x-ray is negative. Patient has done well with IV fluids. His been given 1 L of normal saline IV and 4 mg of Zofran IV. He has not vomited since the IV was started. He is comfortable for discharge and will be discharged with Zofran to be used as needed. He'll follow- up with his primary care provider to review medication dosing. CATHI BILL MD March 02, 2017 04:50
[2017-03-02 05:08] LABS: BASOPHILS % (AUTO) 0.2 % (0-2); EOSINOPHILS # (AUTO) 0.1 T/MM3 (0-0.5); EOSINOPHILS % (AUTO) 0.5 % (0-4); HGB - HEMOGLOBIN 15.7 GM/DL (13.5-17.5); IMMATURE GRANULOCYTE # (AUTO) 0.03 T/MM3 (0.00-0.03); IMMATURE GRANULOCYTE % (AUTO) 0.2 % (0.0-0.5); LYMPHOCYTES # (AUTO) 1.6 T/MM3 (1-4.8); LYMPHOCYTES % (AUTO) 12.5 % (23-45); MEAN CORPUSCULAR HGB 28.3 UUG (26-34); MEAN CORPUSCULAR HGB CONC(MCHC 33.4 GM/DL (31-37); MEAN CORPUSCULAR VOLUME 84.7 UM3 (80-100); MONOCYTES # (AUTO) 0.8 T/MM3 (0-0.8); MONOCYTES % (AUTO) 6.6 % (0-9.0); NEUTROPHILS #(AUTO)-ABSOLUTE 10.1 T/MM3 (1.8-7.7); RED BLOOD COUNT 5.55 M/MM3 (4.50-5.90); WBC - WHITE BLOOD COUNT 12.7 T/MM3 (4.5-11.0)
[2017-03-02] MEDS ORDERED: ALBU8.5H INH (05:17)
[2017-03-02] MEDS ORDERED: SUCR1ORA3 PO (05:17)
[2017-03-02 05:18] LABS: ALBUMIN/GLOBULIN RATIO 1.6 RATIO (1.1-2.2); ALKALINE PHOSPHATASE 74 U/L (38-126); ALT (SGPT) 34 U/L (21-72); ANION GAP 18 MEQ/L (5-15); AST (SGOT) 22 U/L (17-59); BUN/CREATININE RATIO 17 RATIO (6-26); CALCIUM 9.9 MG/DL (8.4-10.2); CHLORIDE 106 MEQ/L (98-107); CO2 - CARBON DIOXIDE 25 MEQ/L (22-30); CREATININE 0.9 MG/DL (0.8-1.5); GLOMERULAR FILTRATION RATE 104; GLUCOSE 98 MG/DL (75-110); LIPASE 96 U/L (23-300); POTASSIUM 3.5 MEQ/L (3.6-5); SODIUM 149 MEQ/L (134-144); TOTAL PROTEIN 8.1 G/DL (6.3-8.2)
--- NOTE | 2017-03-02 05:19 | NUR ---
XRAY PT TAKEN TO XRAY PER W/C
--- NOTE | 2017-03-02 05:30 | NUR ---
ROOM PT RETURNED TO ROOM 1 PER W/C FROM XRAY
[2017-03-02] MEDS ORDERED: ONDA4TAB4 PO (06:04)
--- NOTE | 2017-03-02 06:10 | NUR ---
Status update: Assumed patient care after recieving report. Patient is A&OX3 in bed awaiting urine results. Discussed how patient is going to get home after discharge. He is going to try to reach some family members.
[2017-03-02 06:32] LABS: BLOOD, URINE NEGATIVE (NEGATIVE); COLOR,URINE YELLOW (YELLOW); LEUKOCYTE ESTERASE ,URINE NEGATIVE (NEGATIVE); NITRITE,URINE NEGATIVE (NEGATIVE); UROBILINOGEN,URINE 0.2 EU/DL (NORMAL)
[2017-03-02 06:45] VITALS: BP 130/77; PULSE 98; RESP 16; O2SAT 100
[2017-03-02 07:07] LABS: AMPHETAMINE SCREEN,URINE NEGATIVE; BARBITURATE SCREEN,URINE NEGATIVE; BENZODIAZEPINES SCREEN,URINE POSITIVE; CANNABINOID SCREEN,URINE NEGATIVE; COCAINE SCREEN,URINE NEGATIVE; METHADONE SCREEN, URINE NEGATIVE; METHAMPHETAMINE SCREEN, URINE NEGATIVE; OPIATE SCREEN,URINE NEGATIVE; PHENCYCLIDINE SCREEN,URINE NEGATIVE; TRICYCLIC ANTIDEPRESSANT,URINE NEGATIVE
--- NOTE | 2017-03-02 07:46 | DI ---
Indication: ITS.REASON: nausea vomiting PROCEDURE: KUB W/UPRIGHT: Encounter: Initial Comparison: None Findings: The visualized lung bases are clear. There is no free air on the upright view. The bowel gas pattern is nonobstructive and nonspecific. Gas is seen in nondilated small and large bowel to the level of the rectum. Moderate stool is seen throughout the colon. Impression: Nonobstructive nonspecific bowel gas pattern. .
== END 2017-03-02 06:45 | disposition home or self-care (01) ==
LOC: ED 04:11
DX: R11.2 Nausea with vomiting, unspecified (principal); E86.0 Dehydration; F41.9 Anxiety disorder, unspecified; Z79.899 Other long term (current) drug therapy
CPT/HCPCS: 36415; 74020; 80053; 80306; 81003; 83690; 85025; 96361; 96374; 99283; J2405; J7030